=== PATIENT | female | born 1970 | race Caucasian/White ===

== ENCOUNTER → 2016-12-13 | Outpatient (CLI) | payer OTHER ==
--- NOTE | 2016-12-18 10:49 | MM ---
Reason for exam: screening (asymptomatic). Last mammogram was performed 1 year ago. History: Patient is postmenopausal and history of other cancer. Family history of breast cancer in mother at age 67. Benign excisional biopsy of the right breast, 2008. Taking estrogen for 8 years beginning at age 38. Physical Findings: A clinical breast exam by your physician is recommended on an annual basis and results should be correlated with mammographic findings. MG 3D Screening Mammo W/Cad Bilateral CC and MLO view(s) were taken. Prior study comparison: December 03, 2015, bilateral MG 3d screening mammo w/cad. November 30, 2014, bilateral MG screening mammo w CAD. October 09, 2013, bilateral digital screening mammo w/CAD. There are scattered fibroglandular densities. There is chronic nodularity bilaterally. No significant changes when compared with prior studies. ASSESSMENT: Benign, BI-RAD 2 RECOMMENDATION: Routine screening mammogram of both breasts in 1 year.
== END | disposition home or self-care (01) ==
LOC: RADMAMWWP 16:32
PROVIDERS: ATTEND Family Medicine
DX: Z12.31 Encounter for screening mammogram for malignant neoplasm of breast (principal); Z80.3 Family history of malignant neoplasm of breast
CPT/HCPCS: 77063; G0202

== ENCOUNTER → 2017-02-02 | Outpatient (CLI) | payer OTHER ==
[2017-02-02 19:01] LABS: ALT 30 U/L (9-52); AST 15 U/L (14-36); Alkaline Phosphatase 118 U/L (38-126); Amylase 58 U/L (30-110); Anion Gap 11 mmol/L; Blood Urea Nitrogen 17 mg/dL (7-17); Calcium 9.6 mg/dL (8.4-10.2); Carbon Dioxide 27 mmol/L (22-30); Chloride 105 mmol/L (98-107); Cholesterol 211 mg/dL (<200); Glucose 102 mg/dL (74-99); HDL Cholesterol 64 mg/dL (40-60); Non-African American GFR(MDRD) >60 (>60 ml/min/1.73 sqM); Potassium 4.6 mmol/L (3.5-5.1); Sodium 143 mmol/L (137-145); Total Bilirubin 0.5 mg/dL (0.2-1.3); Total Protein 7.2 g/dL (6.3-8.2); Triglycerides 176 mg/dL (<150)
[2017-02-02 19:36] LABS: Basophils # (A) 0.1 k/uL (0-0.2); Basophils % (A) 1 %; CH 29.3; CHCM 32.4; Eosinophils # (A) 0.1 k/uL (0-0.7); Eosinophils % (A) 2 %; HCT 45.8 % (34.0-46.0); HDW 2.48; HGB 14.9 gm/dL (11.4-16.0); Luc # (Auto) 0.14; Luc % (Auto) 2; Lymphocytes # (A) 1.8 k/uL (1.0-4.8); Lymphocytes % (A) 27 %; MCH 29.4 pg (25.0-35.0); MCHC 32.4 g/dL (31.0-37.0); MCV 90.8 fL (80.0-100.0); Mean Platelet Volume 7.3; Monocytes # (A) 0.3 k/uL (0-1.0); Monocytes % (A) 5 %; Neutrophils # (A) 4.2 k/uL (1.3-7.7); Neutrophils % (A) 63 %; RBC 5.05 m/uL (3.80-5.40); RDW 13.7 % (11.5-15.5); WBC 6.7 k/uL (3.8-10.6); WBC (Perox) 6.46
[2017-02-02 23:39] LABS: Hemoglobin A1C 5.4 % (4.2-6.1)
== END ==
LOC: MMGSC 10:31
PROVIDERS: ATTEND Family Medicine
DX: E11.9 Type 2 diabetes mellitus without complications (principal); I10 Essential (primary) hypertension; R10.9 Unspecified abdominal pain; R14.0 Abdominal distension (gaseous)
CPT/HCPCS: 36415; 80053; 80061; 82150; 83036; 83690; 84443; 85025

== ENCOUNTER → 2017-06-21 | Outpatient (CLI) | payer OTHER ==
--- NOTE | 2017-06-21 18:28 | PN ---
PROGRESS NOTE DATE OF SERVICE: 06/21/2017 46-year-old lady has been followed in [facility] for treatment of obstructive sleep apnea-hypopnea syndrome. The patient continued to use her CPAP equipment successfully without any problems, getting her CPAP supplies in time. No snoring with CPAP. [place] Sleepiness Scale 10 today. I checked patient's CPAP unit. CPAP pressure is 10 cm of water. Usage is every night 100% more than 4 hours, average 9.2 hours. Leak is only 1 L/minute. Apnea- hypopnea index for the last month is 1.2, which is perfect. MEDICATIONS: . Metformin was stopped 4 months ago because of blood sugar improved. Medication for the blood pressure. Patient forgot the name of medication. PHYSICAL EXAM: Patient in no distress. BP 139/71, HR 82, RR 16, height 5 feet 1 inches, weight 240, which is the same as the 1 year ago, BMI 45.3, temperature 98.1. Oxygen saturation on room air 97%. Oropharynx low position of soft palate. ABDOMEN: Obese. Neck Supple, no JVD. Thyroid is not palpable. LUNGS Clear to percussion and to auscultation. Good air exchange. No wheezing or rhonchi. HEART S1, S2 regular. No murmurs, gallops, or rubs. ABDOMEN : Obese. Soft and nontender. Bowel sounds are present. No organomegaly appreciated. EXTREMITIES No clubbing or cyanosis. INSTRUCTIONAL CONSULTANT Awake, alert, and oriented X3. Cranial nerves 2 to 7 intact. There is no fasciculation or atrophy. noted. No focal deficits observed. IMPRESSION: 1. Obstructive sleep apnea-hypopnea syndrome, on full control with CPAP at 10 cm of water. Patient demonstrated 100% compliance with treatment benefitting from treatment. 2. Obesity with the same weight as one year ago. 3. History of diabetes, several months ago metformin was stopped because the blood sugar improved. 4. Hypertension. 5. Status post hysterectomy. 6. Status post nasal septum deviation surgery. 7. Status post hernia repair. PLAN: 1. Continue treatment with CPAP every night for the whole night with the same pressure. 2. Losing weight. 3. Sleep hygiene with regular time in bed for at least 8 hours. 4. No driving if feeling sleepiness. 5. Prescription for all necessary CPAP supplies including mask, tube, filters. 6. Followup visit in 1 year or earlier if patient has any problems. Thank you very much for allowing me to participate in the management of your patient. Sincerely, Maynor Sims MD, PhD, FAASM Diplomat of [place] [employer] [employer] Electronic Publishing Specialist of [facility] [place] MMODL / BRENNAN: [id number] / MTDD
== END ==
LOC: SLEEP 15:49
PROVIDERS: ATTEND Internal Medicine
DX: G47.33 Obstructive sleep apnea (adult) (pediatric) (principal); E66.9 Obesity, unspecified; I10 Essential (primary) hypertension; Z90.710 Acquired absence of both cervix and uterus; Z98.890 Other specified postprocedural states; Z98.84 Bariatric surgery status

== ENCOUNTER → 2018-01-15 | Outpatient (CLI) | payer OTHER ==
--- NOTE | 2018-01-16 10:30 | MM ---
Reason for exam: screening (asymptomatic). Last mammogram was performed 1 year and 1 month ago. History: Patient is postmenopausal and history of other cancer. Family history of breast cancer in mother at age 67. Benign excisional biopsy of the right breast, 2008. Taking estrogen for 8 years beginning at age 38. Physical Findings: A clinical breast exam by your physician is recommended on an annual basis and results should be correlated with mammographic findings. MG 3D Screening Mammo W/Cad Bilateral CC and MLO view(s) were taken. Prior study comparison: December 13, 2016, bilateral MG 3d screening mammo w/cad. December 03, 2015, bilateral MG 3d screening mammo w/cad. The breast tissue is heterogeneously dense. This may lower the sensitivity of mammography. There is no discrete abnormality. No significant changes when compared with prior studies. ASSESSMENT: Negative, BI-RAD 1 RECOMMENDATION: Routine screening mammogram of both breasts in 1 year.
== END | disposition home or self-care (01) ==
LOC: RADMAMWWP 13:02
PROVIDERS: ATTEND Family Medicine
DX: Z12.31 Encounter for screening mammogram for malignant neoplasm of breast (principal)
CPT/HCPCS: 77063; 77067

== ENCOUNTER → 2019-03-03 | Outpatient (CLI) | payer OTHER ==
--- NOTE | 2019-03-04 11:03 | MM ---
Reason for exam: screening (asymptomatic). Last mammogram was performed 1 year and 2 months ago. History: Patient is postmenopausal and history of other cancer. Family history of breast cancer in mother at age 67. Benign excisional biopsy of the right breast, 2008. Taking estrogen for 8 years beginning at age 38. Physical Findings: A clinical breast exam by your physician is recommended on an annual basis and results should be correlated with mammographic findings. MG 3D Screening Mammo W/Cad Bilateral CC and MLO view(s) were taken. Prior study comparison: January 15, 2018, bilateral MG 3d screening mammo w/cad. December 13, 2016, bilateral MG 3d screening mammo w/cad. There are scattered fibroglandular densities. No significant changes when compared with prior studies. ASSESSMENT: Benign, BI-RAD 2 RECOMMENDATION: Routine screening mammogram of both breasts in 1 year.
== END | disposition home or self-care (01) ==
LOC: RADMAMWWP 16:50
PROVIDERS: ATTEND Family Medicine
DX: Z12.31 Encounter for screening mammogram for malignant neoplasm of breast (principal); Z80.3 Family history of malignant neoplasm of breast
CPT/HCPCS: 77063; 77067

== ENCOUNTER → 2019-08-07 | Outpatient (CLI) | payer OTHER ==
--- NOTE | 2019-08-07 18:37 | PN ---
PROGRESS NOTE DATE OF SERVICE: 08/07/2019 This patient is a 49-year-old lady who has been followed in Sleep Center for treatment of obstructive sleep apnea-hypopnea syndrome. Patient continues to use her CPAP equipment every night for the whole night. No snoring with the machine. No problems with getting her supplies. Her [place] Sleepiness Scale today is 7, which is in normal range. MEDICATIONS: 1. Ramipril. 2. Estradiol. PHYSICAL EXAMINATION: GENERAL: A pleasant patient in no distress. VITAL SIGNS: BP 150/85, HR 81, RR 16, height 5 feet 1 inch, weight 219.4, temperature 97.8, oxygen saturation at room air 99%. HEENT: PERRLA, EOMI. Evaluation of oropharynx showed tongue protrudes midline. Low position of soft palate. Mallampati III to IV. NECK: Supple. No JVD. Thyroid is not palpable. LUNGS: Clear to percussion and to auscultation. Good air exchange. No wheezing or rhonchi. HEART: S1, S2 regular. No murmurs, gallops or rubs. ABDOMEN: Slightly obese. EXTREMITIES: No clubbing or cyanosis. PROJECT ENGINEERING DIRECTOR: Awake, alert, and oriented X3. Cranial nerves 2 to 7 intact. There is no fasciculation or atrophy. noted. No focal deficits observed. IMPRESSION: 1. Obstructive sleep apnea-hypopnea syndrome. The patient continues to use her CPAP equipment every night for the whole night, benefitting from treatment. 2. Hypertension. 3. Obesity; body mass index 41.3. 4. Status post hysterectomy. 5. Status post surgery for nasal septum deviation. 6. Status post hernia repair. PLAN: 1. Patient will continue to use CPAP equipment every night for the whole night. 2. I will maintain all necessary prescriptions for CPAP supplies, including mask, tube, filters. 3. Driving precautions. No driving if feeling any sleepiness. 4. Sleep hygiene with regular time in bed for at least 7-1/2 to 8 hours. 5. Follow-up visit in 6 months. Thank you very much for allowing me to participate in the management of your patient. Sincerely, Maynor Sims MD, PhD, FAASM Diplomat of [employer] [employer] Medicine Service Supervisor of [facility] [place] MMODL / IJN: [id number] /
== END ==
LOC: SLEEP 16:40
PROVIDERS: ATTEND Internal Medicine
DX: G47.33 Obstructive sleep apnea (adult) (pediatric) (principal); I10 Essential (primary) hypertension; J34.2 Deviated nasal septum; E66.9 Obesity, unspecified; Z68.41 Body mass index [BMI] 40.0-44.9, adult; Z99.89 Dependence on other enabling machines and devices; Z90.710 Acquired absence of both cervix and uterus; Z98.890 Other specified postprocedural states; Z79.899 Other long term (current) drug therapy

== ENCOUNTER → 2020-09-15 | Outpatient (CLI) | payer OTHER ==
--- NOTE | 2020-09-16 01:57 | SFUN ---
SLEEP CENTER FOLLOW UP NOTE DATE OF SERVICE: 09/15/2020. 50-year-old lady who has been followed in Sleep Center for treatment of obstructive sleep apnea-hypopnea syndrome. The patient successfully continues to use her CPAP equipment every night for the whole night. She does not have any significant problems related to mask fitting, pressure or humidification. [place] Sleepiness Scale is 8. I checked her CPAP unit. CPAP pressure is 10 cm of water. Usage is 30/30 nights for more than 4 hours. Average usage is 9.6 hours per night. Leak is 1 L/minute only. The apnea-hypopnea index is 0.9, which is absolutely perfect. MEDICATIONS: Estradiol 1 mg once a day. Ramipril 2.5 mg once a day. 10 mg once a day. PHYSICAL EXAM: Patient in no distress, BP 143/81, HR 92, RR 15, height 5 feet 1-1/2 inches, weight 252 pounds, BMI 46.8, temperature 98.4, oxygen saturation at room air 97%. Oropharynx low position of soft palate. Mallampati 3-4. HEENT: PERRLA, EOMI, evaluation of oropharynx showed tongue protrudes midline. NECK: Supple, no JVD. Thyroid is not palpable. LUNGS: Clear to percussion and to auscultation. Good air exchange. No wheezing or rhonchi. HEART: S1, S2 regular. No murmurs, gallops, or rubs. ABDOMEN: Obese. Soft and nontender. Bowel sounds are present. No organomegaly appreciated. EXTREMITIES: No clubbing or cyanosis. CARPENTER MINE: Awake, alert, and oriented X3. Cranial nerves 2 to 7 intact. There is no fasciculation or atrophy. noted. No focal deficits observed. IMPRESSION: 1. Obstructive sleep apnea-hypopnea syndrome. Patient demonstrated great compliance with treatment benefitting from treatment. 2. Obesity. 3. Hypertension. 4. History of diabetes mellitus in the past. Blood sugar normalized. 5. Status post hysterectomy. 6. Status post nasal septum deviation surgery. 7. Status post hernia repair. PLAN: 1. Patient will continue to use PAP equipment every night for the whole night. 2. Sleep hygiene with regular time in bed for at least 7-1/2 to 8 hours. 3. Precautions related to driving. No driving if feeling sleepiness. 4. I will maintain all necessary prescription for PAP supplies including mask, tube, filters. 5. Watching weight. 6. No driving if feeling sleepiness. 7. Follow-up visit in 6 months or earlier if patient has any problems. Thank you very much for allowing me to participate in management of your patient. Sincerely, Maynor Sims MD, PhD, FAASM Diplomat of [place] [employer] Specialties [place] Board of Internal Medicine Director Telecommunications of [facility] [place] MMODL / SHAHABN: [id number] /
== END | disposition home or self-care (01) ==
LOC: SLEEP 16:13
PROVIDERS: ATTEND Internal Medicine
DX: G47.33 Obstructive sleep apnea (adult) (pediatric) (principal); E66.9 Obesity, unspecified; I10 Essential (primary) hypertension; Z68.42 Body mass index [BMI] 45.0-49.9, adult; Z99.89 Dependence on other enabling machines and devices; Z86.39 Personal history of other endocrine, nutritional and metabolic disease; Z90.710 Acquired absence of both cervix and uterus; Z98.890 Other specified postprocedural states; Z79.890 Hormone replacement therapy; Z79.899 Other long term (current) drug therapy

== ENCOUNTER → 2020-09-28 | Outpatient (CLI) | payer OTHER ==
--- NOTE | 2020-09-30 14:00 | MM ---
Reason for exam: screening (asymptomatic). Last mammogram was performed 1 year and 7 months ago. History: Patient is postmenopausal and history of other cancer. Family history of breast cancer in mother at age 67. Benign excisional biopsy of the right breast, 2008. Taking estrogen for 9 years beginning at age 38. Physical Findings: A clinical breast exam by your physician is recommended on an annual basis and results should be correlated with mammographic findings. MG 3D Screening Mammo W/Cad Bilateral CC and MLO view(s) were taken. Prior study comparison: March 03, 2019, bilateral MG 3d screening mammo w/cad. January 15, 2018, bilateral MG 3d screening mammo w/cad. There are scattered fibroglandular densities. No significant changes when compared with prior studies. ASSESSMENT: Negative, BI-RAD 1 RECOMMENDATION: Routine screening mammogram of both breasts in 1 year.
== END | disposition home or self-care (01) ==
LOC: RADMAMWWP 16:20
PROVIDERS: ATTEND Obstetrics & Gynecology
DX: Z12.31 Encounter for screening mammogram for malignant neoplasm of breast (principal); Z80.3 Family history of malignant neoplasm of breast
CPT/HCPCS: 77063; 77067

== ENCOUNTER → 2021-01-17 | Outpatient (CLI) | payer OTHER ==
[2021-01-18 10:16] LABS: African American GFR (CKD) 98.9 (60.0-200.0); Non-African American GFR(CKD) 85.4 (60.0-200.0)
== END | disposition home or self-care (01) ==
LOC: LABWHC1 15:42
PROVIDERS: ATTEND Psychiatry & Neurology Neurology
DX: Z13.89 Encounter for screening for other disorder (principal)
CPT/HCPCS: 36415; 82565; 84520

== ENCOUNTER → 2021-02-09 | Outpatient (CLI) | payer OTHER ==
--- NOTE | 2021-02-09 16:13 | US ---
EXAMINATION TYPE: US venous doppler duplex UE RT DATE OF EXAM: 02/09/2021 COMPARISON: NONE CLINICAL HISTORY: R22.31 Rt arm swelling. SIDE PERFORMED: Right Patient had IV in right forearm last week. There is bruising and swelling at site. Right Arm: Negative for DVT IJV, subclavian, axillary, brachial, basilic, cephalic, radial, and ulnar veins were sonographically evaluated. Scanning was performed directly over bruising , and there is a patent superficial vessel (cephalic). IMPRESSION: At the site of the bruising of the right forearm there is a superficial patent cephalic vein. No evid ence of deep venous thrombosis of the right upper extremity veins.
== END | disposition home or self-care (01) ==
LOC: RADUSWWP 14:52
PROVIDERS: ATTEND Psychiatry & Neurology Neurology
DX: R22.31 Localized swelling, mass and lump, right upper limb (principal)

== ENCOUNTER → 2021-03-17 | Outpatient (CLI) | payer OTHER ==
--- NOTE | 2021-03-18 06:13 | SFUN ---
SLEEP CENTER FOLLOW UP NOTE DATE OF SERVICE: 03/17/2021 INTERVAL HISTORY: A 50-year-old lady who has been followed in Sleep Center for treatment of obstructive sleep apnea-hypopnea syndrome. Patient continues to use her CPAP equipment every night for the whole night. No snoring with the machine. Recently developed some problem with her disk in the neck and feels a little bit uncomfortable with the headgear or the full-face mask. Also the patient developed some kind of spasms of her tongue and muscles under the tongue. [place] Sleepiness Scale today is 7. I checked her CPAP unit. Pressure is 10 cm of water. Usage is 30/30 nights for more than 4 hours with average usage 9.4 hours per night. Leak is 5 L/minute, which is normal range. Apnea-hypopnea index is only 0.9, which is perfect. MEDICATIONS: Ramipril 2.5 mg once a day, Estradiol 1 mg once a day, Zetia 10 mg once a day. PHYSICAL EXAMINATION: GENERAL: Patient in no distress. VITAL SIGNS: BP 152/90, HR 80, RR 16, height 5 feet 1-1/2 inches, weight 237, body mass index 44.0, temperature 98.2, oxygen saturation at room air 96%. HEENT: PERRLA, EOMI, evaluation of oropharynx showed tongue protrudes midline. Low position of soft palate. Mallampati 3-4. NECK: Supple, no JVD. Thyroid is not palpable. LUNGS: Clear to percussion and to auscultation. Good air exchange. No wheezing or rhonchi. HEART: S1, S2 regular. No murmurs, gallops, or rubs. ABDOMEN: Soft and nontender. Bowel sounds are present. No organomegaly appreciated. Slightly obese. EXTREMITIES: No clubbing or cyanosis. PLUMBING AND HEATING CONTRACTOR: Awake, alert, and oriented X3. Cranial nerves 2 to 7 intact. There is no fasciculation or atrophy. noted. No focal deficits observed. IMPRESSION: 1. Obstructive sleep apnea-hypopnea syndrome. Patient demonstrated 100% compliance with treatment and benefitting from treatment. The patient feels some discomfort with the headgear from the mask on the back of her neck. 2. Neck problems. 3. Feeling spasms in the tongue and under the tongue muscles. 4. History of diabetes mellitus in the past. Presently blood sugar normalized. 5. Status post hysterectomy. 6. Status post nasal septum deviation surgery. 7. Status post hernia repair. PLAN: PLAN 1. Patient will continue to use PAP equipment every night for the whole night. 2. Sleep hygiene with regular time in bed for at least 7-1/2 to 8 hours. 3. Precautions related to driving. No driving if feeling sleepiness. 4. I will maintain all necessary prescription for PAP supplies including mask, tube, filters. 5. Watching weight. 6. Follow-up visit in 6 months or earlier if patient has any problems. 7. Please check calcium level. 8. Prescription for Jenelle Rodriguez FX nasal pillow mask. This mask goes around the ears and does not touch the neck. Thank you very much for allowing me to participate in the management of your patient. Sincerely, Maynor Sims MD, PhD, FAASM Diplomat of [place] [employer] Specialties [employer] [employer] Medicine Day Habilitation Specialist of [facility] [place] MMODL / IJN: [id number] /
== END ==
LOC: SLEEP 15:52
PROVIDERS: ATTEND Internal Medicine
DX: G47.33 Obstructive sleep apnea (adult) (pediatric) (principal); K14.8 Other diseases of tongue; M53.82 Other specified dorsopathies, cervical region; E11.9 Type 2 diabetes mellitus without complications; Z90.710 Acquired absence of both cervix and uterus; Z98.890 Other specified postprocedural states

== ENCOUNTER → 2021-12-12 | Outpatient (CLI) | payer BC ==
--- NOTE | 2021-12-13 15:03 | MM ---
Reason for exam: screening (asymptomatic). Last mammogram was performed 1 year and 3 months ago. History: Patient is postmenopausal and history of other cancer. Family history of breast cancer in mother at age 67. Benign excisional biopsy of the right breast, 2008. Taking estrogen for 13 years beginning at age 38. Physical Findings: A clinical breast exam by your physician is recommended on an annual basis and results should be correlated with mammographic findings. MG 3D Screening Mammo W/Cad Bilateral CC and MLO view(s) were taken. Prior study comparison: September 28, 2020, bilateral MG 3d screening mammo w/cad. March 03, 2019, bilateral MG 3d screening mammo w/cad. There are scattered fibroglandular densities. No significant changes when compared with prior studies. ASSESSMENT: Benign, BI-RAD 2 RECOMMENDATION: Routine screening mammogram of both breasts in 1 year.
== END | disposition home or self-care (01) ==
LOC: RADMAMWWP 13:51
PROVIDERS: ATTEND Obstetrics & Gynecology
DX: Z12.31 Encounter for screening mammogram for malignant neoplasm of breast (principal); Z78.0 Asymptomatic menopausal state; Z80.3 Family history of malignant neoplasm of breast
CPT/HCPCS: 77063; 77067

== ENCOUNTER → 2022-01-04 | Outpatient (CLI) | payer BC ==
--- NOTE | 2022-01-04 18:43 | SFUN ---
SLEEP CENTER FOLLOW UP NOTE DATE OF SERVICE: 01/04/2022 This 51-year-old lady had been followed in Sleep Center for treatment of obstructive sleep apnea-hypopnea syndrome. The patient continues to use her CPAP equipment every night. No snoring with the machine. She is getting her supplies on time. She worries that there is a sign on the machine that motor expectancy life . I checked her CPAP unit. Pressure is 10 cm of water. Usage is 30/30 nights for more than 4 hours, average 9.8 hours per night. Leak is only 1 L/minute. Apnea-hypopnea index is 1.2, which is absolutely perfect. MEDICATIONS: Estradiol, PHYSICAL EXAMINATION: GENERAL: Pleasant patient in no distress. VITAL SIGNS: BP 154/95, HR 90, RR 18, weight 244.8 pounds, height 5 feet 1-1/2 inches. The patient's weight increased by 7 pounds. Temperature 98.0, oxygen saturation at room air 98%. HEENT: PERRLA, EOMI, evaluation of oropharynx showed tongue protrudes midline. Low position of soft palate; Mallampati III to IV. NECK: Supple, no JVD. Thyroid is not palpable. LUNGS: Clear to percussion and to auscultation. Good air exchange. No wheezing or rhonchi. HEART: S1, S2 regular. No murmurs, gallops, or rubs. ABDOMEN: Obese. EXTREMITIES: No clubbing or cyanosis. LICENSED MASTER SOCIAL WORKER: Awake, alert, and oriented X3. Cranial nerves 2 to 7 intact. There is no fasciculation or atrophy. noted. No focal deficits observed. IMPRESSION: 1. Obstructive sleep apnea-hypopnea syndrome. Patient demonstrated great compliance with treatment, benefitting from treatment. 2. Previously patient felt spasms muscles. No episodes like that since I saw the patient several months ago. 3. History of diabetes mellitus in the past. Blood sugar is normal. 4. Status post hysterectomy. 5. Status post nasal septum deviation surgery. 6. Status post hernia repair. PLAN: 1. Machine works well. I do not see a necessity to replace the machine right now. If she has any problems, the machine will be replaced. 2. Patient will continue to use PAP equipment every night for the whole night. 3. Sleep hygiene with regular time in bed for at least 7-1/2 to 8 hours. 4. Precautions related to driving. No driving if feeling sleepiness. 5. I will maintain all necessary prescription for PAP supplies including mask, tube, filters. 6. Watching weight. 7. Follow-up visit in 6 months or earlier if patient has any problems. Thank you very much for allowing me to participate in the management of your patient. Sincerely, Maynor Sims MD, PhD, FAASM Diplomat of [place] [employer] Sleep Medicine Board of [place] [employer] Medicine Delivery Representative of [facility] [place] MMODL / IJN: [id number] /
== END ==
LOC: SLEEP 15:36
PROVIDERS: ATTEND Internal Medicine
DX: G47.33 Obstructive sleep apnea (adult) (pediatric) (principal); M62.838 Other muscle spasm; E11.9 Type 2 diabetes mellitus without complications; Z90.711 Acquired absence of uterus with remaining cervical stump; Z98.890 Other specified postprocedural states; Z99.89 Dependence on other enabling machines and devices

== ENCOUNTER → 2022-06-21 | Outpatient (CLI) | payer BC ==
--- NOTE | 2022-06-21 14:03 | P.PN ---
Subjective DATE: 06/21/2022 FOLLOW UP VISIT. Patient with obstructive sleep apnea hypopnea syndrome return to sleep center for follow-up visit. Information from previous visit have been reviewed. Patient received new CPAP unit. Patient is using PAP equipment every night for the whole night, getting PAP supplies in time. The patient does not have significant problems with the mask, PAP unit and humidification. [place] sleepiness scale is 9, which is in normal range. I checked information from PAP unit. PAP unit pressure 10 cm H2O. Usage is 80 % for more then 4 hours, average 8.8 hours per night. Leak is 0.5 l/m, which is in perfect range. Apnea Hypopnea Index is 1.4, which is normal. MEDICATIONS:1. Estradiol During physical exam: GENERAL: A pleasant patient without any distress. VITAL SIGNS: BP 130/87, HR 78, RR 18 , weight 247.4, temperature 97.5, oxygen saturation at room air 98 % . HEENT: PERRLA, EOMI.low position of soft palate, Mallapati 3-4 . NECK: Supple. No JVD. LUNGS: Clear to percussion and to auscultation. Good air exchange. No wheezing or rhonchi. HEART: S1, S2 regular. ABDOMEN: Soft and nontender. Slightly obese EXTREMITIES: No clubbing or cyanosis. LIBRARY MANAGER: Awake, alert, and oriented x3. No focal deficit. Impressions: 1. Obstructive sleep apnea-hypopnea syndrome. Patient demonstrated great compliance with treatment, benefiting from treatment. 2. History of diabetes mellitus in the past. 3. History of muscle spasms in the past. 4. Status post hysterectomy. 5. Status post nasal surgery for nasal septum deviation. 6. Status post hernia repair. 7. Obesity Plan: 1. Continue using PAP equipment every night for the whole night. 2. To change air filter at least 1-2 times per month. 3. PAP unit should stay lower then position of the head. 4. Advised patient to remove all remaining water from humidifier canister daily and make it dry after each usage. Refill canister with fresh distilled water before each usage. 5. Sleep hygiene with regular time in bed for at least 8 hours. 6. Precautions related to driving. No driving if feel any sleepiness. 7. I will maintain prescription for PAP supplies including mask, tube, filters. 8. Follow up visit in 6 months or earlier if patient has any problems. 9. Watching and losing weight. Thank you very much for allowing me to participate in the management of your patient. Maynor Sims MD, PhD, FAASM. Diplomat of [place] [employer], Sleep Medicine Board by [place] [employer] Staff Respiratory Therapist of [facility] [place]
== END ==
LOC: SLEEP 13:34
PROVIDERS: ATTEND Internal Medicine
DX: G47.33 Obstructive sleep apnea (adult) (pediatric) (principal); E66.9 Obesity, unspecified; E11.9 Type 2 diabetes mellitus without complications; J34.2 Deviated nasal septum; Z99.89 Dependence on other enabling machines and devices; Z90.710 Acquired absence of both cervix and uterus; Z87.39 Personal history of other diseases of the musculoskeletal system and connective tissue; Z98.890 Other specified postprocedural states
CPT/HCPCS: 99212

== ENCOUNTER → 2022-12-21 | Outpatient (CLI) | payer OTHER ==
--- NOTE | 2022-12-21 13:40 | P.PN ---
Subjective DATE: 12/21/2022 FOLLOW UP VISIT. Patient with obstructive sleep apnea hypopnea syndrome return to sleep center for follow-up visit. Information from previous visit have been reviewed. Patient is using PAP equipment every night for the whole night, getting PAP supplies in time. The patient does not have significant problems with the mask, PAP unit and humidification. [place] sleepiness scale is 9, which is borderline. I checked information from PAP unit and explained it to the patient in details. PAP unit pressure 10 cm H2O. Usage is 100 % for more then 4 hours, average 9.7 hours per night. Leak is perfect on l/m. Apnea Hypopnea Index is 0.9, which is absolutely normal. MEDICATIONS:1. Estradiol 1 mg once a day 2. Ramipril 2.5 mg once a day During physical exam: GENERAL: A pleasant patient without any distress. VITAL SIGNS: BP 126/77, HR 78, RR 16 , weight 251.2, temperature 98, oxygen saturation at room air 96 % . HEENT: PERRLA, EOMI.low position of soft palate, Mallapati 34 . NECK: Supple. No JVD. LUNGS: Clear to percussion and to auscultation. Good air exchange. No wheezing or rhonchi. HEART: S1, S2 regular. ABDOMEN: Soft and nontender. Obese EXTREMITIES: No clubbing or cyanosis. PHOTOGRAPHY ASSISTANT: Awake, alert, and oriented x3. No focal deficit. Impressions: 1. Obstructive sleep apnea-hypopnea syndrome. Patient demonstrated great compliance with treatment, benefiting from treatment. 2. Obesity, body mass index 46. 3. Status post nasal surgery for nasal septum deviation. 4. Status post hysterectomy. 5. History of diabetes mellitus in the past. 6. History of muscle spasms in the past. 7. Status post hernia repair. Plan: 1. Continue using PAP equipment every night for the whole night. 2. To change air filter at least 1-2 times per month. 3. PAP unit should stay lower then position of the head. 4. Advised patient to remove all remaining water from humidifier canister daily and make it dry after each usage. Refill canister with fresh distilled water before each usage. 5. Sleep hygiene with regular time in bed for at least 8 hours. 6. Precautions related to driving. No driving if feel any sleepiness. 7. I will maintain prescription for PAP supplies including mask, tube, filters. 8. Watching and losing weight. 9. Follow up visit in 6 months or earlier if patient has any problems. Thank you very much for allowing me to participate in the management of your patient. Maynor Sims MD, PhD, FAASM. Diplomat of [place], Sleep Medicine Board by [employer] Neurosurgical Physician Assistant of [facility] [place]
== END ==
LOC: SLEEP 13:14
PROVIDERS: ATTEND Internal Medicine
DX: G47.30 Sleep apnea, unspecified (principal); E11.9 Type 2 diabetes mellitus without complications; E66.9 Obesity, unspecified; G47.33 Obstructive sleep apnea (adult) (pediatric); Z68.42 Body mass index [BMI] 45.0-49.9, adult; Z90.710 Acquired absence of both cervix and uterus; Z98.890 Other specified postprocedural states; Z99.89 Dependence on other enabling machines and devices
CPT/HCPCS: 99212

== ENCOUNTER → 2023-02-19 | Outpatient (CLI) | payer OTHER ==
--- NOTE | 2023-02-20 08:10 | MM ---
Reason for Exam: Screening (asymptomatic). Last mammogram was performed 1 year(s) and 3 month(s) ago. Patient History: Menarche at age 11. First Full-Term at age 28. Left ovary removed at age 38. Right ovary removed at age 38. Hysterectomy at age 38. Postmenopausal. Other cancer. Currently using Estrogen, beginning at age 38 for 13 years. 2009, Benign Excisional Biopsy on the right side. Mother had breast cancer, age 67. Risk Values: Shirin 5 year model risk: 2.5%. NCI Lifetime model risk: 18.7%. Prior Study Comparison: 03/03/2019 Bilateral Screening Mammogram, [facility]. 09/28/2020 Bilateral Screening Mammogram, [facility]. 12/12/2021 Bilateral Screening Mammogram, [facility]. Tissue Density: There are scattered fibroglandular densities. Findings: Analyzed By CAD. There is no suspicious group of microcalcifications or new suspicious mass in either breast. Overall Assessment: Negative, BI-RAD 1 Management: Screening Mammogram of both breasts in 1 year. . Patient should continue monthly self-breast exams. A clinical breast exam by your physician is recommended on an annual basis. This exam should not preclude additional follow-up of suspicious palpable abnormalities. Note on Shirin scores and lifetime risk: 1. A Shirin score greater than 3% is considered moderate risk. If this is the case, consider specialist referral to assess eligibility for a risk reducing agent. 2. If overall lifetime risk for the development of breast cancer is 20% or higher, the patient may qualify for future screening with alternating mammogram and breast MRI. Electronically signed and approved by: Juan Jones M.D. Radiologis
== END | disposition home or self-care (01) ==
LOC: RADMAMWWP 15:06
PROVIDERS: ATTEND Family Medicine
DX: Z12.31 Encounter for screening mammogram for malignant neoplasm of breast (principal); Z78.0 Asymptomatic menopausal state; Z80.3 Family history of malignant neoplasm of breast
CPT/HCPCS: 77063; 77067

== ENCOUNTER → 2023-07-05 | Outpatient (CLI) | payer OTHER ==
--- NOTE | 2023-07-05 14:05 | P.PN ---
Subjective DATE: 07/05/2023 FOLLOW UP VISIT. Patient with obstructive sleep apnea hypopnea syndrome return to sleep center for follow-up visit. Information from previous visit have been reviewed. Patient is using PAP equipment every night for the whole night, getting PAP supplies in time. The patient does not have significant problems with the mask, PAP unit and humidification. [place] sleepiness scale is 7, which is normal. I checked information from PAP unit. PAP unit pressure 10 cm H2O. Usage is 100 % for more then 4 hours, average 9.3 hours per night. Leak is perfect 0 l/m. Apnea Hypopnea Index is 1.0, which is normal. Patient has episodes of drooling. MEDICATIONS:1. Estradiol 1 mg once a day 2. Ramipril 2.5 mg once a day During physical exam: GENERAL: A pleasant patient without any distress. VITAL SIGNS: BP 141/82, HR 103, RR 20, weight 221, temperature 97.8, oxygen saturation at room air 98 % . HEENT: PERRLA, EOMI.low position of soft palate, Mallapati 34. NECK: Supple. No JVD. LUNGS: Clear to percussion and to auscultation. Good air exchange. No wheezing or rhonchi. HEART: S1, S2 regular. ABDOMEN: Soft and nontender.[] EXTREMITIES: No clubbing or cyanosis. MECHANICAL PROJECT MANAGER: Awake, alert, and oriented x3. No focal deficit. Impressions: 1. Obstructive sleep apnea-hypopnea syndrome. Patient demonstrated great compliance with treatment, benefiting from treatment. 2. History of obesity, patient lost 30 pounds since previous visit. 3. Status post nasal surgery for nasal septum deviation. 4. history of diabetes mellitus in the past. 5. status post hernia repair. 6. history of muscle spasms in the past. Plan: 1. Continue using PAP equipment every night for the whole night. 2. To change air filter at least 1-2 times per month. 3. PAP unit should stay lower then position of the head. 4. Advised patient to remove all remaining water from humidifier canister daily and make it dry after each usage. Refill canister with fresh distilled water before each usage. 5. Sleep hygiene with regular time in bed for at least 8 hours. 6. Precautions related to driving. No driving if feel any sleepiness. 7. I will maintain prescription for PAP supplies including mask, tube, filters. 8. Follow up visit in 6 months or earlier if patient has any problems. 9. Watching weight. 10. Prescription for chinstrap to prevent drooling. Thank you very much for allowing me to participate in the management of your patient. Maynor Sims MD, PhD, FAASM. Diplomat of [place] [employer], Sleep Medicine Board by [place] [employer] W[employer] Etcher Stripper of [facility] [place]
== END ==
LOC: 3 N SLEEP 13:20
PROVIDERS: ATTEND Internal Medicine
DX: G47.33 Obstructive sleep apnea (adult) (pediatric) (principal); E11.9 Type 2 diabetes mellitus without complications; E66.9 Obesity, unspecified; Z98.890 Other specified postprocedural states; Z99.89 Dependence on other enabling machines and devices; Z88.2 Allergy status to sulfonamides
CPT/HCPCS: 99212

== ENCOUNTER → 2024-03-21 | Outpatient (CLI) | payer OTHER ==
--- NOTE | 2024-03-24 10:24 | MM ---
Reason for Exam: Screening (asymptomatic). Last mammogram was performed 1 year(s) and 1 month(s) ago. Patient History: Menarche at age 11. First Full-Term at age 28. Left ovary removed at age 38. Right ovary removed at age 38. Hysterectomy at age 38. Postmenopausal. Currently using Estrogen, beginning at age 38 for 13 years. 2009, Benign Excisional Biopsy on the right side. Mother had breast cancer, age 67. Risk Values: Shirin 5 year model risk: 2.6%. NCI Lifetime model risk: 18.4%. Prior Study Comparison: 09/28/2020 Bilateral Screening Mammogram, [facility]. 12/12/2021 Bilateral Screening Mammogram, [facility]. 02/19/2023 Bilateral MG 3D screening mammo w/cad, [facility]. Tissue Density: The breasts are almost entirely fatty. Findings: Analyzed By CAD. Right breast: There is no suspicious group of microcalcifications or new suspicious mass. Left breast: There is no suspicious group of microcalcifications or new suspicious mass. Overall Assessment: Negative, BI-RAD 1 Management: Screening Mammogram of both breasts in [address] [facility] will attempt to contact patient to return for supplemental views and ultrasound if indicated. Patient should continue monthly self-breast exams. A clinical breast exam by your physician is recommended on an annual basis. This exam should not preclude additional follow-up of suspicious palpable abnormalities. Note on Shirin scores and lifetime risk: 1. A Shirin score greater than 3% is considered moderate risk. If this is the case, consider specialist referral to assess eligibility for a risk reducing agent. 2. If overall lifetime risk for the development of breast cancer is 20% or higher, the patient may qualify for future screening with alternating mammogram and breast MRI. Electronically signed and approved by: Arsalan Mayes DO
== END | disposition home or self-care (01) ==
LOC: RADMAMWWP 13:55
PROVIDERS: ATTEND Family Medicine
DX: Z12.31 Encounter for screening mammogram for malignant neoplasm of breast (principal); Z78.0 Asymptomatic menopausal state; Z80.3 Family history of malignant neoplasm of breast
CPT/HCPCS: 77063; 77067

== ENCOUNTER → 2024-07-03 | Outpatient (CLI) | payer OTHER ==
[2024-07-03 15:28] VITALS: BP 129/86; PULSE 79; RESP 18; TEMP 97.7
--- NOTE | 2024-07-03 15:50 | P.PROGSL ---
Subjective DATE: 07/03/2024 FOLLOW UP VISIT. Patient with obstructive sleep apnea hypopnea syndrome return to sleep center for follow-up visit. Information from previous visit have been reviewed. Patient is using PAP equipment every night for the whole night, getting PAP supplies in time. The patient does not have significant problems with the mask, PAP unit and humidification. [place] sleepiness scale is 7, which is normal. I checked information from PAP unit. PAP unit pressure 10 cm H2O. Usage is 100% for more then 4 hours, average 9.7 hours per night. Leak is 1 l/m, which is in acceptable range. Apnea Hypopnea Index is 1.5, which is normal. MEDICATIONS have been reviewed, please see below. During physical exam: GENERAL: A pleasant patient without any distress. VITAL SIGNS: Please see below, weight is 224.6 lbs. HEENT: PERRLA, EOMI.low position of soft palate, Mallapati 34. NECK: Supple. No JVD. LUNGS: Clear to percussion and to auscultation. Good air exchange. No wheezing or rhonchi. HEART: S1, S2 regular. ABDOMEN: Soft and nontender. Obese EXTREMITIES: No clubbing or cyanosis. DIRECTOR DATABASE: Awake, alert, and oriented x3. No focal deficit. Impressions: 1. Obstructive sleep apnea-hypopnea syndrome. Patient demonstrated great compliance with treatment, benefiting from treatment. 2. Obesity, BMI 43.6, patient increased weight on 3 pounds comparing with the previous visit. 3. History of diabetes mellitus in the past. 4. Status post nasal surgery for nasal septum deviation. 5. Status post hernia repair. 6. History of muscle spasms in the past. Plan: 1. Continue using PAP equipment every night for the whole night. 2. Sleep hygiene with regular time in bed for at least 7.5-8 hours 3. PAP unit should stay lower then position of the head. 4. Advised patient to remove all remaining water from humidifier canister daily and make it dry after each usage. Refill canister with fresh distilled water before each usage. 5. Watching and losing weight. 6. Precautions related to driving. No driving if feel any sleepiness. 7. I will maintain prescription for PAP supplies including mask, tube, filters. 8. Follow up visit in 6 months or earlier if patient has any problems. Thank you very much for allowing me to participate in the management of your patient. Maynor Sims MD, PhD, FAASM. Diplomat of [place], Sleep Medicine Board by [place] Grain Picker of [facility] [place] Objective - Vital Signs Vital Signs: Vital Signs Temp 97.7 F 07/03/24 15:26 Pulse 79 07/03/24 15:26 Resp 18 07/03/24 15:26 BP 129/86 07/03/24 15:26 Pulse Ox 98 07/03/24 15:26 FiO2 Intake & Output 07/02/24 07/03/24 07/03/24 18:59 06:59 18:59 Weight 101.775 kg Home Medications: Home Medications Medication Instructions Recorded Confirmed Type Phentermine HCl 37.5 mg PO [id number] 06/11/23 06/12/23 History estradioL [Estrace] 1 mg PO DAILY 06/11/23 07/03/24 History ramipriL 2.5 mg PO DAILY 06/11/23 07/03/24 History
== END ==
LOC: 3 N SLEEP 14:52
PROVIDERS: ATTEND Internal Medicine
CPT/HCPCS: 99212